=== PATIENT | female | born 1995 | race American Indian/Alaskan Native ===

== ENCOUNTER 2019-11-03 19:27 | Emergency (ER) | payer OTHER ==
[2019-11-03] MEDS ORDERED: IBUPROFEN 600 MG TAB PO ONE ×2 (22:09→22:11)
[2019-11-03] MEDS ORDERED: ACETAMINOPHEN 325 MG TAB PO ONE (22:09)
--- NOTE | 2019-11-03 22:09 | Event Note ---
ED Screening Note ED Screening Note: generalized body aches that began yesterday +fever +dry cough +rhinorrhea +diarrhea nausea no vomiting no SOB PMHx none allergy: amoxicillin LNMP: currently on cycle states her daughter tested positive for flu
[2019-11-03] MEDS ORDERED: ACETAMINOPHEN 325 MG TAB ONE (22:11)
--- NOTE | 2019-11-03 22:12 | Emergency Department Report ---
- General Chief Complaint: Upper Respiratory Infection Stated Complaint: FEVER,CHEST PAIN, ZHENG Time Seen by Provider: 11/03/19 22:07 Source: patient Mode of arrival: Ambulatory Limitations: No Limitations - History of Present Illness Initial Comments: pt is a 24 yo female who presents to the ED with c/o generalized body aches that began yesterday. she has associated fever, dry cough , rhinorrhea, couple episodes of diarrhea, nausea. she denies any abd pain, vomiting, or SOB. PMHx none. allergy: amoxicillin. LNMP: currently on cycle. states her daughter tested positive for flu a couple days ago. - Related Data Previous Rx's Medication Instructions Recorded Last Taken Type Oseltamivir [Tamiflu] 75 mg PO BID 5 Days #10 cap 11/03/19 Unknown Rx Allergies Allergy/AdvReac Type Severity Reaction Status Date / Time amoxicillin Allergy Hives Verified 11/03/19 20:17 ED Review of Systems ROS: Stated complaint: FEVER,CHEST PAIN, ZHENG Other details as noted in HPI Comment: All other systems reviewed and negative ED Past Medical Hx - Social History Smoking Status: Never Smoker Substance Use Type: Alcohol - Medications Home Medications: Home Medications Medication Instructions Recorded Confirmed Last Taken Type Oseltamivir [Tamiflu] 75 mg PO BID 5 Days #10 cap 11/03/19 Unknown Rx ED Physical Exam - General Limitations: No Limitations General appearance: alert, in no apparent distress - Head Head exam: Present: atraumatic, normocephalic - Eye Eye exam: Present: normal appearance - ENT ENT exam: Present: normal orophraynx, mucous membranes moist, TM's normal bilaterally, normal external ear exam - Respiratory Respiratory exam: Present: normal lung sounds bilaterally. Absent: respiratory distress, wheezes, rales, rhonchi, stridor, chest wall tenderness, accessory muscle use, decreased breath sounds, prolonged expiratory - Cardiovascular Cardiovascular Exam: Present: normal rhythm, tachycardia, normal heart sounds. Absent: systolic murmur, diastolic murmur, rubs, gallop - Neurological Exam Neurological exam: Present: alert, oriented X3 - Psychiatric Psychiatric exam: Present: normal affect, normal mood - Skin Skin exam: Present: warm, dry, intact ED Course Vital Signs 11/03/19 11/03/19 22:07 22:55 Temperature 102.7 F H 99.9 F H Pulse Rate 119 H 111 H Respiratory 22 20 Rate Blood Pressure 123/87 Blood Pressure 134/82 [Left] O2 Sat by Pulse 96 96 Oximetry ED Medical Decision Making - Lab Data Vital Signs 11/03/19 11/03/19 22:07 22:55 Temperature 102.7 F H 99.9 F H Pulse Rate 119 H 111 H Respiratory 22 20 Rate Blood Pressure 123/87 Blood Pressure 134/82 [Left] O2 Sat by Pulse 96 96 Oximetry - Medical Decision Making pt is a 24 yo female who presents to the ED with c/o generalized body aches that began yesterday. she has associated fever, dry cough , rhinorrhea, couple episodes of diarrhea, nausea. she denies any abd pain, vomiting, or SOB. PMHx none. allergy: amoxicillin. LNMP: currently on cycle. states her daughter tested positive for flu a couple days ago. vitals with elevated temp and HR which improved upon ibuprofen and tylenol administration. pt has clinical s/sx of influenza with a sick contact. pt given prescription for tamiflu, advised pt it would shorten symptoms by approximately one day. advised pt to please take medication as prescribed. increase your fluid intake over the next several days. may take tylenol then ibuprofen every 4 hours as needed for a fever. may take over the counter cough/cold medication. follow up with a primary care doctor in the next 2-3 days for reexamination. return to the emergency room for any new or worsening symptoms. - Differential Diagnosis influenza, viral syndrome, URI, PNA, bronchitis, strep pharyngitis Critical care attestation.: If time is entered above; I have spent that time in minutes in the direct care of this critically ill patient, excluding procedure time. ED Disposition Clinical Impression: Influenza Disposition: DC-01 TO HOME OR SELFCARE Is pt being admited?: No Does the pt Need Aspirin: No Condition: Stable Instructions: Influenza (ED) Additional Instructions: please take medication as prescribed. increase your fluid intake over the next several days. may take tylenol then ibuprofen every 4 hours as needed for a fever. may take over the counter cough/cold medication. follow up with a primary care doctor in the next 2-3 days for reexamination. return to the emergency room for any new or worsening symptoms. Prescriptions: Oseltamivir [Tamiflu] 75 mg PO BID 5 Days #10 cap Referrals: MALAIKA CUELLO MD [Staff Physician] - 2-3 Days [facility] [Outside] - 2-3 Days [facility] [Outside] - 2-3 Days [facility] [Provider Group] - 2-3 Days Forms: Work/School Release Form(ED) Time of Disposition: 22:36 Print Language: [place]
[2019-11-03 22:56] VITALS: BP 134/82
== END 2019-11-03 22:55 | disposition home or self-care (01) ==
LOC: ED 19:27
DX: J11.1 Influenza due to unidentified influenza virus with other respiratory manifestations (principal); F10.10 Alcohol abuse, uncomplicated; Z79.899 Other long term (current) drug therapy; Z88.0 Allergy status to penicillin

== ENCOUNTER 2022-01-11 08:42 | Emergency (ER) | payer MEDICAID, OTHER ==
[2022-01-11] MEDS ORDERED: KETOROLAC 10 MG TAB PO ONE (10:33)
--- NOTE | 2022-01-11 10:40 | Emergency Department Report ---
ED General Adult HPI - General Chief complaint: Dyspnea/Respdistress Stated complaint: RIB PAIN/HURTS TO BREATHE Time Seen by Provider: 01/11/22 09:55 Source: patient Mode of arrival: Ambulatory Limitations: No Limitations - History of Present Illness Initial comments: 26 year old female without any significant past medical hx presents to ED with complaints of bilateral rib pain. Onset 2 days ago. Patient states pain is in her lateral rib areas, worse on the left than the right and it seems to be worse when she coughs, sneeze, move, with certain positions and also with deep breaths. She states that she is "not really coughing". She denies any wheezing, shortness of breath, injury or strenuous activity, rash, fever or chills. She denies any UTI symptoms abdominal pain, nausea or vomiting. She states that she recently drove to [place] about 2 weeks ago but she has noticed any lower extremity swelling or calf pain. She denies any history of PE or DVT. She smokes marijuana intermittently. She denies tobacco use. She denies alcohol abuse or any other illicit drug use. MD Complaint: Bilateral rib pain -: days(s) (2) Severity scale (0 -10): 8 - Related Data Previous Rx's Medication Instructions Recorded Last Taken Type Oseltamivir [Tamiflu] 75 mg PO BID 5 Days #10 cap 11/03/19 Unknown Rx Ketorolac [Toradol] 10 mg PO Q6H PRN #20 01/11/22 Unknown Rx Allergies Allergy/AdvReac Type Severity Reaction Status Date / Time amoxicillin Allergy Hives Verified 11/03/19 20:17 ED Review of Systems ROS: Stated complaint: RIB PAIN/HURTS TO BREATHE Other details as noted in HPI Comment: All other systems reviewed and negative Constitutional: no symptoms reported Eyes: denies: eye pain, eye discharge, vision change ENT: denies: ear pain, throat pain, dental pain, hearing loss, epistaxis Respiratory: cough. denies: shortness of breath, wheezing Cardiovascular: other (bilateral rib pain) Gastrointestinal: denies: abdominal pain, nausea, vomiting, diarrhea, consti pation, hematemesis, hematochezia Genitourinary: denies: urgency, dysuria, frequency, hematuria, discharge, abnormal menses, dyspareunia Musculoskeletal: denies: back pain, joint swelling, arthralgia, myalgia Skin: denies: rash, lesions, change in color, change in hair/nails, pruritus Neurological: denies: headache, weakness, numbness, paresthesias, confusion, abnormal gait, vertigo Psychiatric: denies: anxiety, depression, auditory hallucinations, visual hallucinations, homicidal thoughts, suicidal thoughts Hematological/Lymphatic: denies: easy bleeding, easy bruising, swollen glands ED Past Medical Hx - Social History Smoking Status: Never Smoker Substance Use Type: Alcohol - Medications Home Medications: Home Medications Medication Instructions Recorded Confirmed Last Taken Type Oseltamivir [Tamiflu] 75 mg PO BID 5 Days #10 cap 11/03/19 Unknown Rx Ketorolac [Toradol] 10 mg PO Q6H PRN #20 01/11/22 Unknown Rx ED Physical Exam - General Limitations: No Limitations General appearance: alert, in no apparent distress, obese - Head Head exam: Present: atraumatic, normocephalic, normal inspection - Neck Neck exam: Present: normal inspection, full ROM - Respiratory Respiratory exam: Present: normal lung sounds bilaterally, chest wall tenderness (bilateral lateral ribs and mildly anterior lower ribs; Normal to inspection to entire chest wall.). Absent: respiratory distress, wheezes, rales, rhonchi, stridor - Cardiovascular Cardiovascular Exam: Present: regular rate, normal rhythm, normal heart sounds - GI/Abdominal GI/Abdominal exam: Present: soft. Absent: distended, tenderness, guarding, dionicio ound - Extremities Exam Extremities exam: Present: normal inspection, full ROM. Absent: pedal edema, calf tenderness - Neurological Exam Neurological exam: Present: alert, oriented X3, CN II-XII intact, normal gait - Psychiatric Psychiatric exam: Present: normal affect, normal mood - Skin Skin exam: Present: intact ED Course Vital Signs 01/11/22 01/11/22 09:39 11:50 Temperature 98.6 F Pulse Rate 97 H 90 Respiratory 18 16 Rate Blood Pressure 136/98 136/88 [Right] O2 Sat by Pulse 97 97 Oximetry ED Medical Decision Making - Medical Decision Making 26 year old female without any significant past medical hx presents to ED with complaints of bilateral rib pain. Onset 2 days ago. Patient states pain is in her lateral rib areas, worse on the left than the right and it seems to be worse when she coughs, sneeze, move, with certain positions and also with deep breaths. She states that she is "not really coughing". She denies any wheezing, shortness of breath, injury or strenuous activity, rash, fever or chills. She denies any UTI symptoms abdominal pain, nausea or vomiting. She states that she recently drove to [place] about 2 weeks ago but she has noticed any lower extremity swelling or calf pain. She denies any history of PE or DVT. She smokes marijuana intermittently. She denies tobacco use. She denies alcohol abuse or any other illicit drug use. Chest x-ray shows no acute abnormality. Patient is not toxic, not ill- appearing. She is not in any acute pain or respiratory distress. Her vital sig ns are stable. On exam she does have reproducible chest wall tenderness. I suspect her pain is musculoskeletal at this time. I do not suspect pulmonary embolus, unstable angina, STEMI, aortic dissection, or any other emergent conditions warranting additional testing at this time. Discussed results with patient. Discussed suspected diagnosis and treatment plan with patient. Patient expressed understanding agree with plan. She was stable at time of discharge. Critical care attestation.: If time is entered above; I have spent that time in minutes in the direct care of this critically ill patient, excluding procedure time. ED Disposition Clinical Impression: Rib pain, Chest wall pain Disposition: 01 HOME / SELF CARE / HOMELESS Is pt being admited?: No Does the pt Need Aspirin: No Condition: Stable Instructions: Chest Wall Pain, [id number] Additional Instructions: I recommend that you take the Toradol as prescribed to help with pain. You can do gentle stretching exercises. Follow-up with your primary care doctor. But if anything changes or worsens return immediately to the ER. Prescriptions: Ketorolac [Toradol] 10 mg PO Q6H PRN #20 PRN Reason: Pain Referrals: MALAIKA CUELLO MD [Primary Care Provider] - 3-5 Days Forms: Work/School Release Form(ED) Time of Disposition: 11:43
--- NOTE | 2022-01-11 11:18 | XRay Report ---
CHEST 2 VIEWS INDICATION / CLINICAL INFORMATION: Bilateral rib pain STUDY TIME: 1057 COMPARISON: None available. FINDINGS: SUPPORT DEVICES: None. HEART / MEDIASTINUM: No significant abnormality. LUNGS / PLEURA: Lateral view is mildly blurred by motion. Lung lyn appear clear of infiltrates. No pleural effusions are seen. No pneumothorax. ADDITIONAL FINDINGS: No significant additional findings. Signer Name: Lino Allen MD Signed: 01/11/2022 11:13 AM Workstation Name: [id number]
[2022-01-11 11:50] VITALS: BP 136/88
== END 2022-01-11 11:51 | disposition home or self-care (01) ==
LOC: ED 08:42
DX: R07.81 Pleurodynia (principal); R07.89 Other chest pain; Z72.89 Other problems related to lifestyle; Z88.1 Allergy status to other antibiotic agents; Z79.899 Other long term (current) drug therapy
CPT/HCPCS: 71046; 99283